=== PATIENT | male | born 1935 | race Asian ===

== ENCOUNTER 2016-08-04 09:00 | Emergency (ER) | payer MEDICARE ==
[2016-08-04 09:50] LABS: Hematocrit 41 % (42-52); Hemoglobin 13.6 g/dl (14.0-18.0); Mean Corpuscular HGB Conc 33 g/dl (31-36); Mean Corpuscular Hemoglobin 31 pg (27-31); Mean Corpuscular Volume 94 fL (80-94); Mean Platelet Volume 10 um3 (7.4-10.4); Red Blood Count 4.34 10^6/ul (4.0-5.4); Red Cell Distribution Width 13 % (10.5-15); White Blood Count 7.3 10^3/ul (3.5-10.8)
[2016-08-04] MEDS ORDERED: NS 0.9% 500 ML BAG* 500 ML IV SCH ×2 (10:00→13:00)
[2016-08-04 10:02] LABS: Albumin 3.5 g/dL (3.2-5.2); BUN/Creatinine Ratio 17.4 (8-20); Calcium 8.9 mg/dL (8.6-10.3); EGFR African American 73.7 (>60); EGFR Non-African American 57.3 (>60); Globulin 3.5 g/dL (2-4); Magnesium 1.8 mg/dL (1.9-2.7); Potassium 3.8 mmol/L (3.5-5.0); Total Bilirubin 0.9 mg/dL (0.2-1.0)
[2016-08-04 10:04] LABS: Troponin I 0.03 ng/mL (<0.04)
--- NOTE | 2016-08-04 10:13 | RAD ---
INDICATION: Syncope COMPARISON: None TECHNIQUE: Noncontrast axial source images were acquired from the skull base to the vertex. FINDINGS: Ventricles/sulci: There is moderate cortical atrophy with compensatory dilatation of the CSF spaces. Brain parenchyma: There is moderate periventricular and subcortical white matter change compatible with chronic ischemia. Intracranial hemorrhage:None. Extra-axial spaces: There are no abnormal extra axial fluid collections or evidence of extra-axial mass. Calvarium: There is no calvarial fracture or other calvarial abnormality. Scalp: There is no evidence of scalp or extracalvarial soft tissue abnormality. Paranasal sinuses/mastoid: The paranasal sinuses and mastoid air cells are clear. Other: None. IMPRESSION: CORTICAL ATROPHY WITH CHRONIC MICROVASCULAR ISCHEMIC CHANGES. NO ACUTE FINDINGS.
--- NOTE | 2016-08-04 10:15 | RAD ---
INDICATION: Syncope COMPARISON: None TECHNIQUE: PA and lateral dual-energy views were obtained. FINDINGS: Bones/Soft Tissues: There are no acute bony findings. Cardiomediastinal: The cardiomediastinal silhouette is normal. Lungs: There is mild bibasilar hypoventilation. Pleura: There are no significant effusions.. Other: None IMPRESSION: MILD BIBASILAR HYPOVENTILATION. NO DEFINITE INFILTRATES. SUGGEST FOLLOW-UP INDICATED.
[2016-08-04 10:56] LABS: TSH (Thyroid Stimulating Horm) 2.17 mcIU/mL (0.34-5.60)
[2016-08-04] MEDS ORDERED: Magnesium Sulfate 2 GM IV* 2 GM/50 ML BAG IVPB ONE (11:42)
[2016-08-04 12:54] LABS: Urine Bacteria 1+ (Absent); Urine Bilirubin Negative (Negative); Urine Glucose Negative (Negative); Urine Nitrite Positive (Negative)
[2016-08-04] MEDS ORDERED: Iodixanol* (CONTRAST) 320 MG/ML 100 ML SDV IV ONE (13:04)
--- NOTE | 2016-08-04 13:19 | RAD ---
INDICATION: Syncope. COMPARISON: Chest x-ray August 04, 2016 TECHNIQUE: Axial source images were obtained from the thoracic inlet to the hemidiaphragms following administration of [address] angiographic technique was utilized. Coronal and sagittal reconstructed images were acquired. CHEST FINDINGS: Neck/thyroid: The visualized neck to include the thyroid appear normal. Chest wall: There are no acute abnormalities of the bony thorax or chest wall. There is no supraclavicular, infraclavicular, or axillary lymphadenopathy. Lungs : There is lingular scarring or less likely atelectasis. The pulmonary interstitium appears normal. There are no endobronchial lesions. Cardiomediastinal structures: There is no CT evidence of acute pulmonary embolic disease. The heart is normal in size. There is no pericardial effusion. There is no evidence of aortic aneurysm or dissection. There is no mediastinal or hilar adenopathy. The esophagus appears normal. Pleura : There are no pleural-based masses or effusions. Other: None. IMPRESSION: NO CT EVIDENCE OF ACUTE PULMONARY EMBOLIC DISEASE. LINGULAR SCARRING, LESS LIKELY ATELECTASIS
--- NOTE | 2016-08-04 13:30 | CONS ---
CONSULTATION REPORT: ADDENDUM: Mr. Nichols is an 81-year-old male with history of liver cancer and hypertension who flew in from [place] to attend his family member's graduation over the weekend. He has been eaten break fast in the morning and today when he stood up he passed out. His blood pressures when presented di d not appear to have marked orthostasis per se, but I suspect pressures were on the low side at 100. Currently after gentle intravenous hydration, his systolic pressure is back to 130s. The patient a nd the patient's family wish not to stay in the hospital. They are planning to drive to [facility] to catch their plane to [place] back. At this point, I suspect that the patient most likely h ad orthostatic hypotension. He is going to receive a little bit more of intravenous hydration and th en most likely be discharged. For further details of the the patient's presentation and plan, negrita dean see consultation report dictated by Renzo Youngblood on 08/04/16 with which I agree. [id number]/[facility] #: [id number]
[2016-08-04] MEDS ORDERED: Ciprofloxacin TAB* 500 MG PO ONE (13:32)
[2016-08-04 13:43] VITALS: BP 137/92
--- NOTE | 2016-08-04 14:29 | CONS ---
DATE OF CONSULT: 08/04/16. REASON FOR MEDICAL EVALUATION: Evaluation for admission. HISTORY OF PRESENT ILLNESS: Mr. Nichols is an 81-year-old male patient. He has a history of BPH. He has a history of hypertension, hepatitis C. He does not really speak any Occitan and the family provides most of the history, but the family states that yesterday that he flew in on a [employer] for graduation from [place]. They went immediately to [facility] he has sat through the entire commencement ceremony. He then went back to the hotel room and he had dinner. He did not really rest. He maybe rested an hour before the commencement ceremony. He did not really eat or drink much yesterday and this morning they went up to go to breakfast, they noticed that there was not any breakfast at the hotel where there were staying. So, the family went out to get breakfast and brought food back for the patient. The patient got up. He sat into the chair and before he started eating he fainted according to the family. he was out for about a minute. The patient said he had no chest pain prior to or after. He denied having any shortness of breath or any abdominal pain. He denied having any nausea or vomiting. He had fainted and he had again denied having any recent change in medications. He thinks he may have even taken his blood pressure meds this morning, be he cannot remember it. The patient came into the hospital. 911 was called by the patient's family. He was evaluated in the ED. Because of this concern of syncope, we were asked to evaluate for admission. PAST MEDICAL HISTORY: Significant for: 1. BPH. 2. Hypertension. 3. Hepatitis C. PAST SURGICAL HISTORY: He has had a liver ablation. HOME MEDICATIONS: According to the list he provided include: 1. Diovan 160 mg daily. 2. Aspirin 81 mg daily. 3. Rapaflo 8 mg p.o. daily. ALLERGIES: No known drug allergies. FAMILY HISTORY: Reviewed, noncontributory. SOCIAL HISTORY: He is a former smoker, but does not smoke anymore. He does not drink alcohol. He lives with his children. Surrogate decision maker is his and children. REVIEW OF SYSTEMS: There is no documented fever. He denied having any significant weight change. There was no double vision. There is no ear discharge. Denies having any rhinorrhea. There is no sore throat. No thyroid enlargement. Denies having any chest pain. There was no orthopnea. There is no nocturnal dyspnea. There is no abdominal pain. There was no nausea. No vomiting. There was no dysuria. There is no frequency. There was a loss of consciousness. No seizure. No pruritus. No skin ulcerations. Review of 14 systems completed, all others negative. PHYSICAL EXAMINATION GENERAL: At this time, this is an 81-year-old male patient, appears well nourished. He is sitting in the ER stretcher. He does not appear to be in any acute distress. VITAL SIGNS: Initially when he came in, the blood pressure of 125/75. His orthostatic, laying down he was 111/69, when he went to standup he was 100/82. HEENT: Head is atraumatic and normocephalic. Eyes: EOMs are intact. Sclerae were anicteric and not pale. Throat: Oral mucosa appears to be moist. No oropharyngeal erythema. NECK: Supple. LUNGS: Clear to auscultation bilaterally. No wheezes, rales, or rhonchi. HEART: Sounds S1, S2. Regular rate and rhythm. No murmurs, rubs, or gallops. ABDOMEN: Soft, flat, and nontender. Bowel sounds present. EXTREMITIES: Pulses were 2+ throughout. He is able to move all 4 extremities with 5/5 strength. NEUROLOGIC: He is awake. He is alert. He is oriented x3. No gross focal deficits. SKIN: Grossly intact. DIAGNOSTIC STUDIES/LAB DATA: Labs today revealed a WBC of 7.3, RBC of 4.34, hemoglobin of 13.6, hematocrit of 41, and a platelet count of 119. Sodium 137, potassium 3.8, chloride of 105, bicarb 26, BUN 21, creatinine 1.21, glucose of 133, lactic 1.2, calcium was 8.9, mag 1.8, AST 39, ALT 17, alk phos 134. Troponin 0.03. BNP is 50. Albumin is 3.5. He had a chest x-ray obtained today, impression: Mild basilar hypoventilation, no definite infiltrates. Follow up as indicated. He had a brain CT which showed cortical atrophy with chronic microvascular ischemic change, no acute findings. He had an EKG obtained today. No previous for comparison, revealed normal sinus rhythm rate of 62, no ST elevation or T-wave inversions were noted. Old medical records reviewed. ASSESSMENT AND PLAN: Mr. Nichols is an 81-year-old male patient coming in to the ER today with complaints of a syncopal episode. We were asked to evaluate and consult. Recommendation at this point are for, 1. Syncope. I think at this point, the patient was orthostatic. He is 81 years old. His blood pressure being 100 systolic with standing certainly could have made him hypoperfused and faint. He states he has received 0.5 L of fluid here and he is feeling better actually. We did repeat orthostatic blood pressures and standing his blood pressure now is 143/68 and when he was lying down it is 134/80. So, I would recommend continuing the fluids. Checking for D -dimer to rule out pulmonary embolism. The family really does not want to stay because they would like to fly home tomorrow, I think they are headed back to [place]. I instructed them that it is of utmost importance to hydrate him and keep him well hydrated and make sure he is resting today. I feel like because he flew [employer], he did not really eat or drink yesterday. He is probably dehydrated and became orthostatic. He took his blood pressure meds today and thus fainted and then I did touch base with Dr. Ruiz and gave him my recommendations and said that in my standpoint he could probably be discharged from the ER. Dr. Ruiz feels like that he will have the patient sign out AMA which I am okay with as well, as there could be other etiologies, but I suspect the most likely culprit is him being dehydrated. 2. Hypertension. Continue his meds. 3. Benign prostatic hyperplasia. Continue his Rapaflo. 4. Hepatitis C. Followup with his primary. TIME SPENT: Time spent on consult 60 minutes; greater than half the time was spent face to face with the patient obtaining my history and physical, the other half time is spent going over the plan of care with the patient and attending, Dr. Candelaria. She is in agreement. DAIJA YOUNGBLOOD NP ADDENDUM TO CONSULTATION REPORT: Mr. Nichols is an 81-year-old male with history of liver cancer and hypertension who flew in from [place] to attend his family member's graduation over the weekend. He has been eaten breakfast in the morning and today when he stood up he passed out. His blood pressures when presented did not appear to have marked orthostasis per se, but I suspect pressures were on the low side at 100. Currently after gentle intravenous hydration, his systolic pressure is back to 130s. The patient and the patient's family wish not to stay in the hospital. They are planning to drive to [place] today to catch their plane to [place] back. At this point, I suspect that the patient most likely had orthostatic hypotension. He is going to receive a little bit more of intravenous hydration and then most likely be discharged. For further details of the the patient's presentation and plan, please see consultation report dictated by Daija Youngblood on 08/04/16 with which I agree. Jovita Candelaria MD [id number]/[facility] #: [id number]/[facility] #: [id number] [place]
--- NOTE | 2016-08-05 19:17 | ED ---
Jorje Barraza Anna, scribed for Deandre Ruiz MD on 08/04/16 at 0941 . Syncope/Near Syncope - HPI Summary HPI Summary: Patient is an 81 y/o male coming to [facility] following the sudden onset of a syncopal episode that occurred this morning when he was sitting in a chair. His family tried to sit him up. He regained consciousness after one minute after his family rubbed menthol oil on his face. Upon waking, he reported feeling tired and that he wanted to go back to sleep. He now feels dizzy and has some numbness in his left arm. When asked, he correctly locates himself in the hospital but incorrectly identifies the month as August. He denies CP, SOB, BROCK, fever, chills, pain, and coughing. The patient flew to [place] two days ago and drove to [place] from there to attend a commencement ceremony. He has been tired since then. His history is significant for Hepatitis C, two liver ablations (most recently one month ago), HTN, and BPH. His family reports that he has been more confused than usual at baseline; he does not have a diagnosis of dementia. Patient medications were reviewed on this visit. - History Of Current Complaint Chief Complaint: EDDizziness Time Seen by Provider: 08/04/16 09:35 Hx Obtained From: Family/Wall Scraper - accompanied by family Onset/Duration: Sudden Onset, Still Present Timing: Minutes - one Context: Witnessed, Loss Of Consciousness - 1 minute Activity At Onset: Other - sitting Associated Head Trauma: No Alleviating Factor(s): Spontaneous Resolution - Allergies/Home Medications Allergies/Adverse Reactions: Allergies Allergy/AdvReac Type Severity Reaction Status Date / Time No Known Allergies Allergy Verified 08/04/16 09:15 Home Medications: Home Medications Aspirin 81 MG TAB 81 mg PO DAILY 08/04/16 [History Confirmed 08/04/16] Silodosin(NF) [Rapaflo(NF)] 8 mg PO DAILY 08/04/16 [History Confirmed 08/04/16] Valsartan TAB* [Diovan TAB*] 160 mg PO DAILY 08/04/16 [History Confirmed ] PMH/Surg Hx/FS Hx/Imm Hx Cardiovascular History: Reports: Hx Hypertension GI History: Reports: Other GI Disorders - Hepatitis C History: Reports: Hx Benign Prostatic Hyperplasia Infectious Disease History: No Infectious Disease History: Denies: Traveled Outside the [place] in Last 30 Days - Family History Known Family History: Negative: Cardiac Disease, Hypertension, Diabetes - Social History Occupation: Retired Lives: With Family Alcohol Use: None Substance Use Type: Reports: None Smoking Status (MU): Never Smoked Tobacco Review of Systems Positive: Fatigue. Negative: Fever, Chills Negative: Chest Pain Negative: Shortness Of Breath, Cough Negative: Arthralgia, Myalgia Neurological: Other - dizziness Positive: Numbness, Syncope. Negative: Headache All Other Systems Reviewed And Are Negative: Yes Physical Exam - Summary Physical Exam Summary: VITAL SIGNS: Reviewed. GENERAL: Patient is a fragile, thin male who is lying comfortable in the stretcher. Patient is not in any acute respiratory distress. HEAD AND FACE: No signs of trauma. No ecchymosis, hematomas or skull depressions. No sinus tenderness. EYES: PERRLA, EOMI x 2, No injected conjunctiva, no nystagmus. EARS: Hearing grossly intact. Ear canals and tympanic membranes are within normal limits. MOUTH: Oropharynx within normal limits. NECK: Supple, trachea is midline, no adenopathy, no JVD, no carotid bruit, no c- spine tenderness, neck with full ROM. CHEST: Symmetric, no tenderness at palpation LUNGS: Clear to auscultation bilaterally. No wheezing or crackles. CVS: Regular rate and rhythm, S1 and S2 present, no murmurs or gallops appreciated. ABDOMEN: Soft, non-tender. No signs of distention. No rebound no guarding, and no masses palpated. Bowel sounds are normal. EXTREMITIES: FROM in all major joints, no edema, no cyanosis or clubbing. NEURO: Alert and oriented x 3. No acute neurological deficits. Speech is normal and follows commands. SKIN: Dry and warm Triage Information Reviewed: Yes Vital Signs On Initial Exam: Initial Vitals Temp Pulse Resp BP Pulse Ox 97.0 F 63 15 125/75 92 08/04/16 09:07 08/04/16 09:07 08/04/16 09:07 08/04/16 09:07 08/04/16 09:07 Vital Signs Reviewed: Yes - Rivas Coma Scale Coma Scale Total: 14 Diagnostics - Vital Signs Vital Signs Temp Pulse Resp BP Pulse Ox 08/04/16 09:30 60 14 129/73 92 08/04/16 09:26 60 20 100/82 96 08/04/16 09:24 61 18 104/62 92 08/04/16 09:11 14 08/04/16 09:10 125/75 08/04/16 09:09 97.0 F 65 15 125/75 94 08/04/16 09:07 97.0 F 63 15 125/75 92 - Laboratory Lab Results: Lab Results 08/04/16 08/04/16 08/04/16 Range/Units 09:35 09:35 09:35 WBC 7.3 (3.5-10.8) 10^3/ul RBC 4.34 (4.0-5.4) 10^6/ul Hgb 13.6 L (14.0-18.0) g/dl Hct 41 L (42-52) % MCV 94 (80-94) fL MCH 31 (27-31) pg MCHC 33 (31-36) g/dl RDW 13 (10.5-15) % Plt Count 119 L (150-450) 10^3/ul MPV 10 (7.4-10.4) um3 Neut % (Auto) 81.2 (38-83) % Lymph % (Auto) 10.7 L (25-47) % Jewell % (Auto) 6.1 (1-9) % Eos % (Auto) 0.9 (0-6) % Baso % (Auto) 1.1 (0-2) % Absolute Neuts (auto) 5.9 (1.5-7.7) 10^3/ul Absolute Lymphs (auto) 0.8 L (1.0-4.8) 10^3/ul Absolute Monos (auto) 0.4 (0-0.8) 10^3/ul Absolute Eos (auto) 0.1 (0-0.6) 10^3/ul Absolute Basos (auto) 0.1 (0-0.2) 10^3/ul Absolute Nucleated RBC 0 10^3/ul Nucleated RBC % 0 D-Dimer, Quantitative (Less Than 230) ng/mL Sodium 137 (133-145) mmol/L Potassium 3.8 (3.5-5.0) mmol/L Chloride 105 (101-111) mmol/L Carbon Dioxide 26 (22-32) mmol/L Anion Gap 6 (2-11) mmol/L BUN 21 (6-24) mg/dL Creatinine 1.21 H (0.67-1.17) mg/dL Est GFR ( Amer) 73.7 (>60) Est GFR (Non-Af Amer) 57.3 (>60) BUN/Creatinine Ratio 17.4 (8-20) Glucose 133 H (70-100) mg/dL Lactic Acid (0.5-2.0) mmol/L Calcium 8.9 (8.6-10.3) mg/dL Magnesium 1.8 L (1.9-2.7) mg/dL Total Bilirubin 0.90 (0.2-1.0) mg/dL AST 39 (13-39) U/L ALT 17 (7-52) U/L Alkaline Phosphatase 124 H (34-104) U/L Troponin I 0.03 (<0.04) ng/mL B-Natriuretic Peptide 50 ( - 100) pg/mL Total Protein 7.0 (6.4-8.9) g/dL Albumin 3.5 (3.2-5.2) g/dL Globulin 3.5 (2-4) g/dL Albumin/Globulin Ratio 1.0 (1-3) TSH 2.17 (0.34-5.60) mcIU/mL Urine Color Urine Appearance Urine pH (5-9) Ur Specific Hudson (1.010-1.030) Urine Protein (Negative) Urine Ketones (Negative) Urine Blood (Negative) Urine Nitrate (Negative) Urine Bilirubin (Negative) Urine Urobilinogen (Negative) Ur Leukocyte Esterase (Negative) Urine WBC (Auto) (Absent) Urine RBC (Auto) (Absent) Urine Bacteria (Absent) Hyaline Casts (Absent) Urine Glucose (Negative) 08/04/16 08/04/16 08/04/16 Range/Units 09:35 09:35 12:33 WBC (3.5-10.8) 10^3/ul RBC (4.0-5.4) 10^6/ul Hgb (14.0-18.0) g/dl Hct (42-52) % MCV (80-94) fL MCH (27-31) pg MCHC (31-36) g/dl RDW (10.5-15) % Plt Count (150-450) 10^3/ul MPV (7.4-10.4) um3 Neut % (Auto) (38-83) % Lymph % (Auto) (25-47) % Jewell % (Auto) (1-9) % Eos % (Auto) (0-6) % Baso % (Auto) (0-2) % Absolute Neuts (auto) (1.5-7.7) 10^3/ul Absolute Lymphs (auto) (1.0-4.8) 10^3/ul Absolute Monos (auto) (0-0.8) 10^3/ul Absolute Eos (auto) (0-0.6) 10^3/ul Absolute Basos (auto) (0-0.2) 10^3/ul Absolute Nucleated RBC 10^3/ul Nucleated RBC % D-Dimer, Quantitative 308 H (Less Than 230) ng/mL Sodium (133-145) mmol/L Potassium (3.5-5.0) mmol/L Chloride (101-111) mmol/L Carbon Dioxide (22-32) mmol/L Anion Gap (2-11) mmol/L BUN (6-24) mg/dL Creatinine (0.67-1.17) mg/dL Est GFR ( Amer) (>60) Est GFR (Non-Af Amer) (>60) BUN/Creatinine Ratio (8-20) Glucose (70-100) mg/dL Lactic Acid 1.2 (0.5-2.0) mmol/L Calcium (8.6-10.3) mg/dL Magnesium (1.9-2.7) mg/dL Total Bilirubin (0.2-1.0) mg/dL AST (13-39) U/L ALT (7-52) U/L Alkaline Phosphatase (34-104) U/L Troponin I (<0.04) ng/mL B-Natriuretic Peptide ( - 100) pg/mL Total Protein (6.4-8.9) g/dL Albumin (3.2-5.2) g/dL Globulin (2-4) g/dL Albumin/Globulin Ratio (1-3) TSH (0.34-5.60) mcIU/mL Urine Color Yellow Urine Appearance Turbid Urine pH 6.0 (5-9) Ur Specific Hudson 1.010 (1.010-1.030) Urine Protein 2+(100 mg/dl) H (Negative) Urine Ketones Negative (Negative) Urine Blood 1+ H (Negative) Urine Nitrate Positive H (Negative) Urine Bilirubin Negative (Negative) Urine Urobilinogen Negative (Negative) Ur Leukocyte Esterase 3+ H (Negative) Urine WBC (Auto) 3+(>20/hpf) H (Absent) Urine RBC (Auto) 1+(3-5/hpf) H (Absent) Urine Bacteria 1+ H (Absent) Hyaline Casts Present H (Absent) Urine Glucose Negative (Negative) Result Diagrams: 08/04/16 09:35 08/04/16 09:35 Lab Statement: Any lab studies that have been ordered have been reviewed, and results considered in the medical decision making process. - Radiology CXR Xray Interpretation: Positive (See Comments) Radiology Interpretation Completed By: Radiologist - IMPRESSION: MILD BIBASILAR HYPOVENTILATION. NO DEFINITE INFILTRATES. SUGGEST FOLLOW-UP INDICATED. - CT CT Brain WO CT Interpretation: No Acute Changes CT Interpretation Completed By: Radiologist - IMPRESSION: CORTICAL ATROPHY WITH CHRONIC MICROVASCULAR ISCHEMIC CHANGES. NO ACUTE FINDINGS. CTA Chest CT Interpretation: Positive (See Comments) CT Interpretation Completed By: Radiologist - IMPRESSION: NO CT EVIDENCE OF ACUTE PULMONARY EMBOLIC DISEASE. LINGULAR SCARRING, LESS LIKELY ATELECTASIS - EKG 0906 Cardiac Rate: NL - 62 bpm EKG Rhythm: Sinus Rhythm ST Segment: Normal Ectopy: None EKG Interpretation: No ST elevation. Re-Evaluation - Re-Evaluation First Eval Re-Evaluation Time: 12:44 Comment: The patient previously had nausea and vomiting, which they initially thought was an allergic reaction, but was not. They agree to a CT. Course/Dx Assessment/Plan: Test results WNL except for slight anemia. D-dimer is 308. UA shows a positive UTI. I decided to do a Chest CT because of elevated D-dimer and the patients recent long flight from [place]. We needed to rule out pulmonary embolism, which may cause a syncopal episode. CXR reveals mild bibasilar hypoventilation with no definite infiltrates. CT brain reveals cortical atrophy with chronic microvascular ischemic changes and no acute findings. CTA chest reveals no evidence of acute pulmonary embolic disease and lingular scarring. At this point, the patient was given Ciprofloxacin for UTI. The patient was offered admission because of syncopal episode. Pt with 2 daughters declined admission. They understand the risks and benefits of admission. Patient and daughters want to sign out AMA. They decided the pt will be going home. Signed AMA form. Pt will be given Rx for Cipro for UTI. I extensively discussed with the patient the benefits and risk of leaving AMA. I also discussed the alternatives to leaving AMA, however, the patient still insist to leave the hospital AMA.. The primary nurse and the charge nurse also strongly recommended that the patient should not leave AMA. Patient understands the risk of leaving AMA, which includes but is not restricted to . Patient is Alert and oriented times three and patient verbalizes understanding. Patient has full capacity and is cognitively intact. Patient signed the AMA form. Patient was also advised to return to ED if he changes his mind or if the symptoms worsen or other symptoms appear. Patient understands and agrees. - Diagnoses Differential Diagnosis/HQI/PQRI: Positive: Cerebral Vascular Accident, Dysrhythmia, Myocardial Infarction, Pulmonary Embolism, Seizure, Transient Ischemic Attack, Vasovagal Episode Provider Diagnoses: Syncope, UTI (urinary tract infection), AMA - Physician Notifications Discussed Care Of Patient With: Renzo Youngblood (Hospitalist EVA) at 1100. Agrees to see patient. Renzo Youngblood (Hospitalist EVA) at 1120. The family wants the patient to be released to catch his flight home to [place] tomorrow. Patient is feeling better after receiving fluids. Orthostatics will be repeated. Renzo PierreHospitalist EVA) at 1126. Upon repeat orthostatics, patient is doing better. Discharge - Discharge Plan Condition: Stable Disposition: AGAINST MEDICAL ADVICE Prescriptions: Ciprofloxacin TAB* [Cipro 500 MG TAB*] 500 mg PO BID #6 tab Patient Education Materials: Ciprofloxacin (By mouth), Urinary Tract Infection in Men (ED), Syncope (ED), Against Medical Advice (ED) Referrals: [facility] [Outside] Additional Instructions: Follow up with primary care physician in 2-3 days. Return to ED for new or worsening symptoms. The documentation as recorded by the Jorje pena Anna accurately reflects the service I personally performed and the decisions made by , Deandre Ruiz MD.
--- NOTE | 2016-08-06 09:55 | PN ---
Progress Note - Progress Note Note: Patient placed on cipro urine culture grew E coli >100,000. will wait final cultures.
== END 2016-08-04 14:00 | disposition left against medical advice (07) ==
LOC: ED 09:00
DX: R55 Syncope and collapse (principal); N39.0 Urinary tract infection, site not specified; I10 Essential (primary) hypertension; B19.20 Unspecified viral hepatitis C without hepatic coma; N40.0 Benign prostatic hyperplasia without lower urinary tract symptoms
CPT/HCPCS: 36415; 70450; 71020; 71275; 80053; 81003; 81015; 83605; 83735; 83880; 84443; 84484; 85025; 85379; 87077; 87086; 87186; 93005; 96374; 99283; A9270-GY; Q9967